=== PATIENT | female | born 1940 | race Caucasian/White ===

== ENCOUNTER 2019-10-26 11:38 | Outpatient (CLI) | payer MEDICARE, OTHER | END 2019-10-26 23:59 | disposition home or self-care (01) | LOC: CARD DIAG 11:38 | PROVIDERS: ATTEND Internal Medicine Cardiovascular Disease | DX: I08.0 Rheumatic disorders of both mitral and aortic valves (principal) | CPT/HCPCS: 93306 ==

== ENCOUNTER 2020-10-29 11:55 | Outpatient (CLI) | payer MEDICARE, MEDICAID | END 2020-10-29 23:59 | disposition home or self-care (01) | LOC: CARD DIAG 11:55 | PROVIDERS: ATTEND Internal Medicine Cardiovascular Disease | DX: I34.0 Nonrheumatic mitral (valve) insufficiency (principal) | CPT/HCPCS: 93306 ==

== ENCOUNTER 2022-11-14 22:53 | Emergency (ER) | payer MEDICARE, MEDICAID ==
[~2022-11-14] VITALS: Ht 152.4 cm; Wt 65.9 kg
[2022-11-14 22:57] VITALS: TEMP 98.6
--- NOTE | 2022-11-14 23:40 | NUR ---
interrogation of [employer] pacemaker completed and data sent. dr payne notified
--- NOTE | 2022-11-14 23:59 | NUR ---
received call from Figueroa with [employer]. he states 130 is upper tracking limit for pts device, possible that pt is in sinus tach and pacemaker is tracking this OR pt may be in PMT with device pacing ventricle. Recommendation is to pass a magnet over pts pacemaker and report back to Figueroa what the rate is. Call back to [phone]. Dr. Quiroz notified.
--- NOTE | 2022-11-15 01:14 | NUR ---
JENNIFER FROM [employer] WALKED THIS RN THROUGH PROCESS OF REPROGRAMMING PACEMAKER AND PERFORMING MORE ADVANCED DIAGNOSTICS. PT HR SUSTAINING IN THE 80S SINCE. FULL REPORT FAXED AND GIVEN TO DR MICHEL.
[2022-11-15] MEDS ORDERED: acetaminophen 325mg tablet PO ONE (01:55)
[2022-11-15] MEDS ORDERED: PERM60CR19 TOP (03:03)
[2022-11-15 12:00] VITALS: BP 150/50; PULSE 60; RESP 17; O2SAT 96
== END 2022-11-15 12:02 | disposition home or self-care (01) ==
LOC: ER 22:54
DX: I49.9 Cardiac arrhythmia, unspecified (principal); B86 Scabies; Z95.0 Presence of cardiac pacemaker; Z88.0 Allergy status to penicillin; Z91.018 Allergy to other foods
CPT/HCPCS: 71045; 99285